=== PATIENT | female | born 1935 | race Caucasian/White ===

== ENCOUNTER → 2016-07-08 07:52 | Outpatient (CLI) | payer MEDICARE, OTHER ==
[2016-07-09 07:23] LABS: IMMUNOGLOBULIN E 10 IU/mL (0-100)
== END | disposition home or self-care (01) ==
LOC: D.RT 07:52
PROVIDERS: Internal Medicine Pulmonary Disease
DX: J45.909 Unspecified asthma, uncomplicated (principal)

== ENCOUNTER → 2017-06-30 12:53 | Outpatient (CLI) | payer MEDICARE, OTHER | END | disposition home or self-care (01) | LOC: D.RT 12:53 | DX: J45.909 Unspecified asthma, uncomplicated (principal) ==

== ENCOUNTER 2017-12-19 10:24 | Inpatient (IN) | payer MEDICARE, OTHER ==
[~2017-12-19] VITALS: Ht 158.8 cm; Wt 92.1 kg
--- NOTE | ~2017-12-19 | MORECARE ---
CASE MANAGEMENT DISCHARGE SUMMARY PATIENT: ZOHRA HARDING UNIT: [id number] ADM DATE: 12/20/17 AGE: 82 : 37 SEX: F ROOM/BED: D.1212 AUTHOR: KAYY,DOC PHYSICIAN: REFERRING PHYSICIAN: MARI GUERRERO MD DATE OF SERVICE: 12/26/17 Discharge Plan Patient Name: ZOHRA HARDING Facility: [facility]:[place] : 1935 Planned Disposition: Inpatient Rehab Anticipated Discharge Date: Discharge Date: 12/25/2017 Expected LOS: Initial Reviewer: [email or web address] Initial Review Date: 12/19/2017 Generated: 12/26/17 6:49 pm Comments DCP- Discharge Planning Updated by [email or web address]: Catherine Kaba on 12/25/17 11:[address] Patient Name: ZOHRA HARDING Admission Status: ER Accout number: [id number] Admission Date: 12-20-2017 : 1935 Admission Diagnosis:DISPLACED COMMINUTED FRACTURE OF RIGHT PATELLA, INIT Attending: MARI GUERRERO Current LOS: 5 Anticipated DC Date: Planned Disposition: Inpatient Rehab Primary Insurance: MEDICARE A & B Discharge Planning Comments: CM met with patient at bedside. Patient plans on going to Inpatient Rehab @ [facility]. Patient states she lives in her own apartment in the basement of her daughters home. She is concerned because she has a steep ramp going in and out of her home. She is currently in an immobilizer. Heather with inpatient rehab here for evaluation this am. IMM explained and served at 12/25/17 @ 1240. CM will continue to follow and assist as needed with discharge planning / needs. Lead Sustainability Specialist: Catherine Kaba DCPIA - Discharge Planning Initial Assessment Updated by [id number]: Catherine Kaba on 12/25/17 12:53 pm * Is the patient Alert and Oriented? Yes * How many steps to enter\exit or inside your home? ramp * PCP Kiara Garcia * Pharmacy [facility] * Preadmission Environment Home Alone * ADLs Independent * Equipment Walker * Other Equipment CPAP * List name and contact numbers for known caregivers / representatives who currently or will assist patient after discharge: Clarisse Colby daughter [phone] Yesenia Oleary daughter [phone] * Verbal permission to speak to the caregivers and representatives has been obtained from the patient. N/A * Community resources currently utilized None * Please name any agencies selected above. patient was going to outpatient rehab @ [facility] prior to admit due to anemia * Additional services required to return to the preadmission environment? No * Can the patient safely return to the preadmission environment? Yes * Has this patient been hospitalized within the prior 30 days at any hospital? No Coverage Notice Reviewer: [id number] Zac Kaba Notice Issued Date-Time: 12/20/2017 15:05 Notice Type: Medicare Outpatient Observation Notice Notice Delivered To: Patient Relationship to Patient: Self Building Guard Deputy Sheriff Name: Delivery Method: - Maddison Days: Prior Verbal Notification: Recipient Understood Notice: Yes Recipient Signature: Yes Med Rec Note Co-signed by Attending: Coverage Notice Comment: Reviewer: [id number] Kaba Notice Issued Date-Time: 12/25/2017 12:40 Notice Type: IM Discharge Notice Notice Delivered To: Patient Relationship to Patient: Self Building Guard Deputy Sheriff Name: Delivery Method: HAND - Hand Delivered Maddison Days: Prior Verbal Notification: Recipient Understood Notice: Yes Recipient Signature: Yes Med Rec Note Co-signed by Attending: Coverage Notice Comment: Last DP export: 12/25/17 12:00 Patient Name: ZOHRA HARDING Page [id number] at 1749 All edits/amendments must be made on the electronic document DICTATION DATE: 12/26/171747 CHILLER TECHNICIAN: BARRY 12/26/171747 RPT#: [id number] DC DATE:12/25/17 STATUS: DIS IN [facility] [address] [place] [address] END OF REPORT
--- NOTE | ~2017-12-19 | OP ---
PATIENT NAME: ZOHRA MATA MEDICAL RECORD: [id number] :[birth year] LOCATION:D. D.1212 ADMISSION DATE:12/20/17 SURGEON: KEESHA PATTERSON DO DATE OF OPERATION: 12/22/2017 PROCEDURE PERFORMED: Right patella open reduction internal fixation. PREOPERATIVE DIAGNOSIS: Closed displaced right patellar fracture. POSTOPERATIVE DIAGNOSIS: Closed displaced right patellar fracture. INDICATIONS: Ms. Mata is an 82-year-old female who fell onto her right side, a couple of days ago, was seen in the ER, seen to have some rib fractures and also right patellar fracture was displaced greater than 2 mm on x-ray. She did have a knee effusion as well as she could not do a single straight leg raise due to this fact. I told her we could wait and see what or we could fix the patella. She wanted the patella fixed so she can walk. I told her we would do that and she can weightbear as tolerated in a knee immobilizer. She was aware of the risks including infection, bleeding, damage to nerves and vessels, further fracture of the patella and need for further surgery. She was okay with those risks and consented to the procedure. SURGEON: Keesha Patterson DO DESCRIPTION OF PROCEDURE: The patient was taken to the operative suite and given a spinal due to her COPD. Once the spinal was set up, the right lower extremity was prepped and draped in sterile fashion. The patient was given 2 grams Ancef preoperatively. Timeout was performed. Everyone was in agreement with correct site, side, and the patient. Incision then began right over the patella and careful dissection was made down to the patella itself and the retinaculum. Two K-wires were then shot out inferior to superior on the patella and confirmed on AP and lateral to be in good position and then two 4-0 compression screws were put in through the K-wires, one was 38 mm in length and the other was a 34, they had nice compression of the fracture at the fracture site and then #2 Ethibond was used in a cerclage suture around the patella and was tied at the inferior pole of the patella under the patellar retinaculum. This suture was then cut. The knee was then aspirated and 30 cc of blood was aspirated out of the knee. The site was then irrigated and the 2 poke holes where the screws were then were closed with #1 Vicryl in a gfaujc-tk-ptxlo fashion and on the patellar retinaculum and then the skin was closed with 2-0 Vicryl and ZipLine was placed on the knee. Adaptic, 4 x 4s, ABD, Webril and Kwadwo wrap were then placed on the knee. The patient was placed in a knee immobilizer, awakened and taken to recovery in stable condition. BLOOD LOSS: Minimal, 15 mL. COMPLICATIONS: None. TRANSINT:[id number] Voice Confirmation ID: [id number] DOCUMENT ID: [id number] OPERATIVE REPORT [id number] ZOHRA MATA,KEESHA Kennedy DO at 0920 CC: [id number] DICTATION DATE: 12/22/17 175 CLERICAL SUPPORT: 12/22/17 223 ADM IN [facility] [address] [place] [address]
--- NOTE | ~2017-12-19 | MORECARE ---
CASE MANAGEMENT DISCHARGE SUMMARY PATIENT: ZOHRA HARDING UNIT: [id number] ADM DATE: 12/20/17 AGE: 82 : 37 SEX: F ROOM/BED: D.1212 AUTHOR: HÉCTOR SULTANA PHYSICIAN: REFERRING PHYSICIAN: MARI GUERRERO MD DATE OF SERVICE: 12/25/17 Discharge Plan Patient Name: ZOHRA HARDING [facility] [facility] 1935 Planned Disposition: Inpatient Rehab Anticipated Discharge Date: Discharge Date: Expected LOS: Initial Reviewer: [id number] Initial Review Date: 12/19/2017 Generated: 12/25/17 1:52 pm Coverage Notice Reviewer: [id number] Zac Kaba Notice Issued Date-Time: 12/20/2017 15:05 Notice Type: Medicare Outpatient Observation Notice Notice Delivered To: Patient Relationship to Patient: Self Foxpro Developer Name: Delivery Method: - Maddison Days: Prior Verbal Notification: Recipient Understood Notice: Yes Recipient Signature: Yes Med Rec Note Co-signed by Attending: Coverage Notice Comment: Patient Name: ZOHRA HARDING Page 44132 at 1252 All edits/amendments must be made on the electronic document DICTATION DATE: 12/25/17 125 RELAY MOTORMAN: BARRY 12/25/17 1252 RPT#: [id number] DC DATE: STATUS: ADM IN [facility] [address] [place] [address] END OF REPORT
--- NOTE | ~2017-12-19 | MORECARE ---
CASE MANAGEMENT DISCHARGE SUMMARY PATIENT: ZOHRA HARDING UNIT: [id number] ADM DATE: 12/20/17 AGE: 82 : 37 SEX: F ROOM/BED: D.1212 AUTHOR: KAYY,DOC PHYSICIAN: REFERRING PHYSICIAN: MARI GUERRERO MD DATE OF SERVICE: 12/25/17 Discharge Plan Patient Name: ZOHRA HARDING Facility: [facility]:[place] : 1935 Planned Disposition: Inpatient Rehab Anticipated Discharge Date: Discharge Date: Expected LOS: Initial Reviewer: [id number] Initial Review Date: 12/19/2017 Generated: 12/25/17 2:00 pm Comments DCP- Discharge Planning Updated by [id number]: Catherine Kaba on 12/25/17 11:[address] Patient Name: ZOHRA HARDING Admission Status: ER Accout number: [id number] Admission Date: 12-20-2017 : 1935 Admission Diagnosis:DISPLACED COMMINUTED FRACTURE OF RIGHT PATELLA, INIT Attending: MARI GUERRERO Current LOS: 5 Anticipated DC Date: Planned Disposition: Inpatient Rehab Primary Insurance: MEDICARE A & B Discharge Planning Comments: CM met with patient at bedside. Patient plans on going to Inpatient Rehab @ [facility]. Patient states she lives in her own apartment in the basement of her daughters home. She is concerned because she has a steep ramp going in and out of her home. She is currently in an immobilizer. Heather with inpatient rehab here for evaluation this am. IMM explained and served at 12/25/17 @ 1240. CM will continue to follow and assist as needed with discharge planning / needs. Observer Helper: Catherine Kaba DCPIA - Discharge Planning Initial Assessment Updated by [id number]: Catherine Kaba on 12/25/17 12:53 pm * Is the patient Alert and Oriented? Yes * How many steps to enter\exit or inside your home? ramp * PCP Kiara Garcia * Pharmacy [facility] * Preadmission Environment Home Alone * ADLs Independent * Equipment Walker * Other Equipment CPAP * List name and contact numbers for known caregivers / representatives who currently or will assist patient after discharge: Clarisse Colby daughter [phone] Yesenia Oleary daughter [phone] * Verbal permission to speak to the caregivers and representatives has been obtained from the patient. N/A * Community resources currently utilized None * Please name any agencies selected above. patient was going to outpatient rehab @ [facility] prior to admit due to anemia * Additional services required to return to the preadmission environment? No * Can the patient safely return to the preadmission environment? Yes * Has this patient been hospitalized within the prior 30 days at any hospital? No Coverage Notice Reviewer: [id number] Zac Kaba Notice Issued Date-Time: 12/20/2017 15:05 Notice Type: Medicare Outpatient Observation Notice Notice Delivered To: Patient Relationship to Patient: Self Hurricane Tracker Name: Delivery Method: - Maddison Days: Prior Verbal Notification: Recipient Understood Notice: Yes Recipient Signature: Yes Med Rec Note Co-signed by Attending: Coverage Notice Comment: Reviewer: [id number] Kaba Notice Issued Date-Time: 12/25/2017 12:40 Notice Type: IM Discharge Notice Notice Delivered To: Patient Relationship to Patient: Self Hurricane Tracker Name: Delivery Method: HAND - Hand Delivered Maddison Days: Prior Verbal Notification: Recipient Understood Notice: Yes Recipient Signature: Yes Med Rec Note Co-signed by Attending: Coverage Notice Comment: Last DP export: 12/25/17 11:52 Patient Name: ZOHRA HARDING Page 82123 at 1300 All edits/amendments must be made on the electronic document DICTATION DATE: 12/25/17 1259 MEAT SOAKER: BARRY 12/25/17 1259 RPT#: [id number] DC DATE: STATUS: ADM IN [facility] [address] [place] [address] END OF REPORT
[2017-12-19] MEDS ORDERED: BAYER CHEWABLE81 MG PO (10:29)
[2017-12-19] MEDS ORDERED: ALBUTEROL SULF8.5 GM INH (10:30)
[2017-12-19] MEDS ORDERED: NORVASC5 MG PO (10:31)
[2017-12-19] MEDS ORDERED: C-10001000 MG PO (10:31)
[2017-12-19] MEDS ORDERED: ALENDRONATE SOD70 MG PO (10:31)
[2017-12-19] MEDS ORDERED: BROMFED-DM COU473 ML PO (10:32)
[2017-12-19] MEDS ORDERED: BREO ELLIPTA 11 EACH INH (10:32)
[2017-12-19] MEDS ORDERED: ZPAK PO (10:32)
[2017-12-19] MEDS ORDERED: CALCIUM 500 +1 EAC3 PO (10:33)
[2017-12-19] MEDS ORDERED: VITAMIN D5000 UNIT PO (10:33)
[2017-12-19] MEDS ORDERED: CELEXA20 MG PO (10:33)
[2017-12-19] MEDS ORDERED: COREG6.25 MG PO (10:33)
[2017-12-19] MEDS ORDERED: TRIGLIDE160 MG PO (10:34)
[2017-12-19] MEDS ORDERED: FERROUS SULFAT325 MG PO (10:34)
[2017-12-19] MEDS ORDERED: CARDURA2 MG PO (10:34)
[2017-12-19] MEDS ORDERED: FISH OIL 1,0001 CA1 PO (10:34)
[2017-12-19] MEDS ORDERED: ISOSORBIDE MONO60 M1 PO (10:35)
[2017-12-19] MEDS ORDERED: FLUTICASONE PRO16 GM NASAL (10:35)
[2017-12-19] MEDS ORDERED: LASIX20 MG PO (10:35)
[2017-12-19] MEDS ORDERED: AVAPRO300 MG PO (10:35)
[2017-12-19] MEDS ORDERED: GLUCOPHAGE1000 MG PO (10:36)
[2017-12-19] MEDS ORDERED: SYNTHROID88 MCG PO (10:36)
[2017-12-19] MEDS ORDERED: CLARITIN 10 MG10 MG PO (10:36)
[2017-12-19] MEDS ORDERED: MAG-OXIDE400 MG PO (10:36)
[2017-12-19] MEDS ORDERED: OXYBUTYNIN CHLOR5 MG PO (10:37)
[2017-12-19] MEDS ORDERED: OMEPRAZOLE20 M1 PO (10:37)
[2017-12-19] MEDS ORDERED: NAPROSYN500 MG PO (10:37)
[2017-12-19] MEDS ORDERED: KLOR-CON 1010 MEQ PO (10:38)
[2017-12-19] MEDS ORDERED: ZANAFLEX2 M1 PO (10:38)
[2017-12-19] MEDS ORDERED: CRESTOR40 MG PO (10:38)
[2017-12-19] MEDS ORDERED: PHENERGAN DM SYR5 ML PO (10:38)
[2017-12-19] MEDS ORDERED: ULTRAM50 MG PO (10:39)
[2017-12-19] MEDS ORDERED: VITAMIN E400 UNI2 PO (10:39)
[2017-12-19] MEDS ORDERED: VITAMIN B-122500 MCG PO (10:39)
[2017-12-19] MEDS ORDERED: TOPAMAX50 MG PO (10:39)
[2017-12-19 12:39] LABS: BASOPHILS 0.4 % (0-2); EOSINOPHILS 1.4 % (0-7); HEMATOCRIT 32.3 % (36.0-48.0); HEMOGLOBIN 10.2 g/dL (12-16); IMMATURE GRANULOCYTES 0.2 % (0-5); LYMPHOCYTES 21.2 % (15-50); MCH 30.3 pg (26.0-34.0); MCHC 31.6 g/dL (31.0-37.0); MCV 95.8 fL (80.0-100.0); MEAN PLATELET VOLUME 9.7 fL (7.4-10.4); MONOCYTES 8.3 % (2-11); NEUTROPHILS 68.5 % (40-80); PLATELET COUNT 191 10x3/uL (130-400); RBC 3.37 10x6/uL (4.00-5.40); RDW 15.2 % (11.5-14.5); WBC 5.5 10x3/uL (4.8-10.8)
[2017-12-19 12:45] LABS: INR 1.12 (0.85-1.17)
[2017-12-19 12:52] LABS: ALBUMIN 3.3 g/dL (3.4-5.0); ANION GAP 10.2 mmol/L (8-16); BILIRUBIN - TOTAL 0.33 mg/dL (0.2-1.3); CALCIUM 9.2 mg/dL (8.5-10.1); CARBON DIOXIDE 27.1 mmol/L (21.0-32.0); CREATININE - SERUM 0.8 mg/dL (0.6-1.3); POTASSIUM - SERUM 4.3 mmol/L (3.5-5.1); PROTEIN - SERUM 6.7 g/dL (6.4-8.2)
[2017-12-19 16:00] VITALS: BP 102/60
[2017-12-19 16:37] LABS: APPEARANCE CLEAR (CLEAR); BILIRUBIN NEGATIVE (NEGATIVE); COLOR YELLOW (YELLOW); GLUCOSE NEGATIVE (NEGATIVE); KETONE NEGATIVE (NEGATIVE); NITRITE NEGATIVE (NEGATIVE); PROTEIN NEGATIVE (NEGATIVE); SPECIFIC GRAVITY 1.015 (1.005-1.020); UROBILINOGEN NORMAL (NORMAL)
[2017-12-19 16:41] LABS: RED CELLS - URINE OCC /hpf (0-5); WHITE CELLS - URINE OCC /hpf (0-5)
[2017-12-19 22:42] VITALS: BP 109/64; BMI 36.6
[2017-12-20 00:25] VITALS: BP 113/46
[2017-12-20 04:31] VITALS: BP 118/49
[2017-12-20 07:26] VITALS: BP 106/41
[2017-12-20 09:00] VITALS: BMI 36.5
[2017-12-20 13:46] VITALS: Ht 158.8 cm; Wt 92.1 kg
[2017-12-20 14:33] LABS: % SATURATION 12 % (15-55); IRON 40 ug/dl (35-150); TOTAL IRON BIND CAPACITY 324 ug/dl (260-445); UNSAT IRON BIND CAPACITY 284 ug/dl (150-375)
[2017-12-20 15:14] VITALS: BP 115/61
[2017-12-20 21:28] VITALS: BP 135/63
[2017-12-21 05:12] VITALS: BP 124/46
[2017-12-21 05:25] LABS: BASOPHILS 0.6 % (0-2); EOSINOPHILS 2.8 % (0-7); HEMATOCRIT 34.5 % (36.0-48.0); IMMATURE GRANULOCYTES 0.4 % (0-5); LYMPHOCYTES 26.7 % (15-50); MCH 30.6 pg (26.0-34.0); MCHC 31.9 g/dL (31.0-37.0); MCV 96.1 fL (80.0-100.0); MEAN PLATELET VOLUME 9.4 fL (7.4-10.4); MONOCYTES 16.4 % (2-11); NEUTROPHILS 53.1 % (40-80); PLATELET COUNT 182 10x3/uL (130-400); RBC 3.59 10x6/uL (4.00-5.40); RDW 15.2 % (11.5-14.5); WBC 5.3 10x3/uL (4.8-10.8)
[2017-12-21 05:34] LABS: ANION GAP 13.5 mmol/L (8-16); CALCIUM 9.6 mg/dL (8.5-10.1); CARBON DIOXIDE 26.8 mmol/L (21.0-32.0); CREATININE - SERUM 0.9 mg/dL (0.6-1.3); POTASSIUM - SERUM 4.3 mmol/L (3.5-5.1)
[2017-12-21 07:45] VITALS: BP 127/47
[2017-12-21 08:19] LABS: FOLATE (FOLIC ACID) - SERUM 12.2 ng/mL (>3.0)
[2017-12-21 11:24] VITALS: BP 144/49
[2017-12-21 16:29] VITALS: BP 126/60
[2017-12-21 23:47] VITALS: BP 130/52
[2017-12-22 00:24] VITALS: BP 130/52
[2017-12-22 04:15] VITALS: BP 107/41
[2017-12-22 05:45] LABS: BASOPHILS 0.3 % (0-2); EOSINOPHILS 2.2 % (0-7); HEMATOCRIT 36.2 % (36.0-48.0); HEMOGLOBIN 11.6 g/dL (12-16); IMMATURE GRANULOCYTES 0.4 % (0-5); LYMPHOCYTES 16.5 % (15-50); MCH 30.6 pg (26.0-34.0); MCV 95.5 fL (80.0-100.0); MEAN PLATELET VOLUME 9.7 fL (7.4-10.4); MONOCYTES 11.6 % (2-11); RBC 3.79 10x6/uL (4.00-5.40)
[2017-12-22 06:09] LABS: PLATELET COUNT 221 10x3/uL (130-400); WBC 8.9 10x3/uL (4.8-10.8)
[2017-12-22 06:14] LABS: ANION GAP 13.9 mmol/L (8-16); CALCIUM 10.2 mg/dL (8.5-10.1); CREATININE - SERUM 1.1 mg/dL (0.6-1.3); POTASSIUM - SERUM 3.9 mmol/L (3.5-5.1)
[2017-12-22 07:37] VITALS: BP 124/47
[2017-12-22 10:36] VITALS: BP 114/52
[2017-12-22 18:41] VITALS: BP 141/79
[2017-12-22 20:08] VITALS: BP 121/43
[2017-12-23 00:07] VITALS: BP 131/55
[2017-12-23 05:29] VITALS: BP 120/54
[2017-12-23 06:46] LABS: BASOPHILS 0.1 % (0-2); EOSINOPHILS 1.3 % (0-7); HEMATOCRIT 31.5 % (36.0-48.0); HEMOGLOBIN 10.1 g/dL (12-16); IMMATURE GRANULOCYTES 0.4 % (0-5); LYMPHOCYTES 16.3 % (15-50); MCH 30.7 pg (26.0-34.0); MCHC 32.1 g/dL (31.0-37.0); MCV 95.7 fL (80.0-100.0); MEAN PLATELET VOLUME 9.6 fL (7.4-10.4); MONOCYTES 14.2 % (2-11); NEUTROPHILS 67.7 % (40-80); PLATELET COUNT 192 10x3/uL (130-400); RBC 3.29 10x6/uL (4.00-5.40); RDW 15.2 % (11.5-14.5); WBC 7.7 10x3/uL (4.8-10.8)
[2017-12-23 07:03] LABS: ANION GAP 12.5 mmol/L (8-16); CALCIUM 8.7 mg/dL (8.5-10.1); CARBON DIOXIDE 28.2 mmol/L (21.0-32.0); CREATININE - SERUM 0.9 mg/dL (0.6-1.3); POTASSIUM - SERUM 3.7 mmol/L (3.5-5.1)
[2017-12-23 07:18] VITALS: BP 125/52
[2017-12-23 11:14] VITALS: BP 142/56
[2017-12-23 20:09] VITALS: BP 124/52
[2017-12-24 00:03] VITALS: BP 91/40
[2017-12-24 04:45] VITALS: BP 101/40
[2017-12-24 05:09] LABS: BASOPHILS 0.3 % (0-2); HEMATOCRIT 29.5 % (36.0-48.0); HEMOGLOBIN 9.4 g/dL (12-16); IMMATURE GRANULOCYTES 0.4 % (0-5); LYMPHOCYTES 20.3 % (15-50); MCH 30.3 pg (26.0-34.0); MCHC 31.9 g/dL (31.0-37.0); MCV 95.2 fL (80.0-100.0); MEAN PLATELET VOLUME 10.1 fL (7.4-10.4); MONOCYTES 14.8 % (2-11); NEUTROPHILS 61.2 % (40-80); PLATELET COUNT 211 10x3/uL (130-400); RDW 14.9 % (11.5-14.5); WBC 6.9 10x3/uL (4.8-10.8)
[2017-12-24 05:38] LABS: ANION GAP 11.5 mmol/L (8-16); CALCIUM 8.7 mg/dL (8.5-10.1); CARBON DIOXIDE 27.5 mmol/L (21.0-32.0); CREATININE - SERUM 0.8 mg/dL (0.6-1.3)
[2017-12-24 07:05] VITALS: BP 121/54
[2017-12-24 11:11] VITALS: BP 122/54
[2017-12-24 15:31] VITALS: BP 118/45
[2017-12-24 20:00] VITALS: BP 127/54
[2017-12-25 00:16] VITALS: BP 118/46
[2017-12-25 04:30] VITALS: BP 112/47
[2017-12-25 05:27] LABS: BASOPHILS 0.3 % (0-2); EOSINOPHILS 3.5 % (0-7); HEMATOCRIT 28.7 % (36.0-48.0); HEMOGLOBIN 9.2 g/dL (12-16); IMMATURE GRANULOCYTES 0.3 % (0-5); MCH 30.5 pg (26.0-34.0); MCHC 32.1 g/dL (31.0-37.0); MEAN PLATELET VOLUME 9.7 fL (7.4-10.4); MONOCYTES 11.5 % (2-11); NEUTROPHILS 65.4 % (40-80); PLATELET COUNT 219 10x3/uL (130-400); RBC 3.02 10x6/uL (4.00-5.40); RDW 14.8 % (11.5-14.5); WBC 6.8 10x3/uL (4.8-10.8)
[2017-12-25 06:23] LABS: ANION GAP 11.3 mmol/L (8-16); CALCIUM 8.8 mg/dL (8.5-10.1); CARBON DIOXIDE 27.8 mmol/L (21.0-32.0); CREATININE - SERUM 0.8 mg/dL (0.6-1.3); POTASSIUM - SERUM 4.1 mmol/L (3.5-5.1)
[2017-12-25 07:45] VITALS: BP 149/57
[2017-12-25 11:12] VITALS: BP 137/49
[2017-12-25] MEDS ORDERED: LEVOFLOXACIN500 MG PO (12:53)
[2017-12-25] MEDS ORDERED: ALBUTEROL2.5 MG/3 M INH (12:53)
[2017-12-25] MEDS ORDERED: BROVANA15 MCG/2 M INH (12:53)
[2017-12-25] MEDS ORDERED: NORCO-10 PO (12:54)
[2017-12-25] MEDS ORDERED: IPRAT-ALBUT 0.5-3 ML INH (12:54)
[2017-12-25] MEDS ORDERED: HYDROCODON-ACE1 EAC7 PO (12:55)
[2017-12-25] MEDS ORDERED: PULMICORT0.5 MG/21 UPD (12:55)
[2017-12-25] MEDS ORDERED: BENZONATATE200 MG PO (12:55)
[2017-12-25] MEDS ORDERED: COLACE100 MG PO (12:55)
[2017-12-25] MEDS ORDERED: HUMULIN R100 U/ML SC (12:56)
[2017-12-25] MEDS ORDERED: MIRALAX17 GM PO (12:56)
[2017-12-25 17:59] VITALS: BP 144/78
== END 2017-12-25 19:20 | DRG 516 ==
LOC: D.ER 10:24 → D.EDHOLD 13:54 → D.M3 13:54 → OBSVTIME 13:55 → D.M3 18:20
PROVIDERS: Family Medicine; Internal Medicine Nephrology; Orthopaedic Surgery
PROC: 0QSD04Z Reposition Right Patella with Internal Fixation Device, Open Approach (ICD-10-PCS; principal; 2017-12-22 14:45)
DX: S82.041A Displaced comminuted fracture of right patella, initial encounter for closed fracture (principal); S22.32XA Fracture of one rib, left side, initial encounter for closed fracture; N17.9 Acute kidney failure, unspecified; J96.11 Chronic respiratory failure with hypoxia; W01.0XXA Fall on same level from slipping, tripping and stumbling without subsequent striking against object, initial encounter; I25.10 Atherosclerotic heart disease of native coronary artery without angina pectoris; J30.9 Allergic rhinitis, unspecified; G47.33 Obstructive sleep apnea (adult) (pediatric); D64.9 Anemia, unspecified; F41.9 Anxiety disorder, unspecified; F32.9 Major depressive disorder, single episode, unspecified; E03.9 Hypothyroidism, unspecified; K21.9 Gastro-esophageal reflux disease without esophagitis; J44.9 Chronic obstructive pulmonary disease, unspecified; E11.9 Type 2 diabetes mellitus without complications; E78.5 Hyperlipidemia, unspecified; I10 Essential (primary) hypertension; Z95.1 Presence of aortocoronary bypass graft

== ENCOUNTER 2017-12-25 19:16 | Inpatient (IN) | payer MEDICARE, OTHER ==
[~2017-12-25] VITALS: Ht 158.8 cm; Wt 92.1 kg
--- NOTE | ~2017-12-25 | RHP ---
PATIENT: ZOHRA HARDING MEDICAL RECORD: [id number] ACCOUNT: [id number] LOCATION:[facility] : [birth year] ADMISSION DATE: 12/25/17 REHABILITATION HISTORY AND PHYSICAL EXAMINATION POST ADMISSION PHYSICIAN EXAMINATION DATE OF ADMISSION TO THE REHAB: 12/25/2017 ADMITTING DIAGNOSES: Acute comminuted fracture of the right patella, wckgtimk-ta-nyzar suprapatellar effusion, displaced acute fracture of the left posterior lateral 8th rib. HISTORY OF PRESENT ILLNESS: The patient is an 82-year-old female who is admitted secondary to a comminuted fracture of the right patella, zxngyhal-om-yolzo suprapatellar effusion, and also a displaced acute fracture of the posterior lateral left rib. After a fall at home on 12/19/2017, she was admitted to the Emergency Room. After arriving, since she had fallen home after tripping and resulted in immediate pain and tenderness, guarded range of motion to her knee. X-ray showed an acute comminuted fracture of the patella and also other x-ray showed a left posterior lateral 8th rib fracture with no evidence of a pneumothorax. The patient has got a history of obstructive sleep apnea, O2 dependence, coronary artery bypass grafting, aortic valve replacement, hypertension, hyperlipidemia, thyroid problems, chronic AFib. She was admitted with ortho and pulmonary consultation. After pulmonary clearance, she went to the OR for ORIF of her right patella. Previously, she was living alone, independent with her ADLs. She still drives. She is currently mod to max assist for ADLs and mobility. She has a right knee immobilizer and weightbearing as tolerated while up with PT. She has continuous O2 at 2 liters, uses CPAP at night. She is on continuous cardiac monitoring due to her history of AFib, coronary artery disease with stent placement, and aortic valve replacement. BARRIERS TO DISCHARGE: Need for O2 titration, cardiac monitoring, pain control, weightbearing as tolerated with the immobilizer, and PT assist and also the fact that she lives alone. COMORBIDITIES: Include a right patellar ORIF, chronic respiratory failure, hypoxia, coronary artery disease, history of aortic valve replacement, normocytic anemia, anemia, hyperlipidemia, hypertension, hypothyroidism, elevated blood sugars, O2 dependence, fatigue, weakness, anxiety, depression, and sleep apnea. PAST MEDICAL HISTORY: Significant for diabetes, thyroid problems, hypertension, coronary artery disease, COPD, skin cancer, acid reflux, arthritis, chronic back pain, osteoporosis, depression, anxiety, and cataracts. PAST SURGICAL HISTORY: Includes knee surgery, cataract surgery, aortic valve replacement, stents and angioplasty, and joint replacement. ALLERGIES: SULFA AND COUMADIN. CURRENT MEDICATIONS: She is on vitamin C daily, Tylenol p.r.n., TriCor 145 mg daily, she is on vitamin D 5000 units daily, potassium chloride oral powder 10 mEq daily, Flonase nasal spray, Ditropan 15 mg daily, Protonix 40 mg daily, metformin 1000 mg b.i.d. with meals, Purnima 60 mg daily, Synthroid 88 mcg HISTORY AND PHYSICAL [id number] ZOHRA HARDING L daily, she is on Levaquin right now 500 mg daily, Imdur 90 mg daily, Avapro 300 mg daily, furosemide 20 mg daily, Breo 1 puff daily, Cardura 2 mg daily, vitamin B12 daily, Celexa 20 mg daily, carvedilol 6.25 mg b.i.d. with meals, aspirin chewable 81 mg daily, ascorbic acid 1000 mg daily, Brovana 15 mcg b.i.d., DuoNeb updrafts, budesonide 0.5 mg b.i.d., Ultram 100 mg b.i.d., Topamax 50 mg b.i.d., tizanidine 2 mg b.i.d., Crestor 40 mg q.h.s., MiraLax 17 grams in 8 ounces of water daily, Neal 10/325 one tab q.4 hours p.r.n., naproxen 500 b.i.d., Mag-Ox 800 mg b.i.d., she is on an intermediate resistant sliding scale of insulin, Neal 5/325 one tab q.4 hours p.r.n., ferrous sulfate 325 mg b.i.d., Colace 100 mg b.i.d., cough syrup as needed, Tessalon Perles 200 mg t.i.d. p.r.n., Norvasc 5 mg b.i.d. HABITS: No current alcohol or tobacco use. FAMILY HISTORY: Noncontributory. SOCIAL HISTORY: The patient hopes to return back home and get back to her prior level of functioning. REVIEW OF SYSTEMS: GENERAL: Does complain of weakness and fatigue. HEENT: She does complain of cold, cough, and congestion. CARDIOVASCULAR: Denies any chest pain. LUNGS: Does complain of shortness of breath especially with activity. PHYSICAL EXAMINATION: VITAL SIGNS: Her weight is noted to be 203 pounds and height 5 feet 2 inches. Her vital signs are stable. She is afebrile. GENERAL: An obese female, in no acute distress, alert upon exam. HEENT: Normocephalic and atraumatic. Mucosa moist. NECK: Supple. No lymphadenopathy. LUNGS: Clear in upper nielsen. HEART: Irregular rate and rhythm. ABDOMEN: Benign. EXTREMITIES: No clubbing, cyanosis, or edema. NEUROLOGIC: She is intact, but she does have noted weakness. It should be noted on her extremities also, she has normal postop swelling for having an ORIF of her patella. LABORATORY DATA: Her white count is 5.9, H&H of 9.2 and 29.2, and platelet count is 244. Her sodium is 135, potassium 4.2, BUN and creatinine of 21 and 0.9, and blood sugar is 113. ASSESSMENT: This is an 82-year-old female patient admitted to rehab with a working diagnosis of multiple fractures involving her knee and also her ribs with debility associated with this. The patient has potential to make improvement. We instituted the following multidisciplinary therapies including, but not limited to physical, occupational, respiratory, speech, nutritional services, prosthetics and orthotics. Given her complex medical condition and risk for more complications, rehabilitation services cannot be provided at a low level of care such as custodial facility. PLAN: 1. Admit to [facility] rehab for inpatient therapy to include the following disciplines: HISTORY AND PHYSICAL [id number] ZOHRA HARDING A. Physical therapy to improve gait, all transfer skills and bed mobility to a modified independent level. B. Occupational therapy to improve activities of daily living to a modified independent level. C. Case management to assist with discharge planning and placement options. D. Nutrition to assist with nutritional needs. E. Rehabilitation nursing to assist in monitoring the patient's underlying medical conditions and to assist with any type of bowel or bladder management. 2. The patient's current medication and medical care will be continued. 4. Placed on standard fall precautions. 5. The patient's estimated length of stay is approximately 7-10 days. 6. We will discuss this patient during care team staff meeting this week. I am going to go ahead and continue on the weightbearing as tolerated status with her leg and we will follow up with care team and case management tomorrow. TRANSINT:[id number] Voice Confirmation ID: [id number] DOCUMENT ID: [id number] ELINA notes whether there has been none or any medical/functional change since admission: - No change since pre-admission screen. ELINA attests patient continues to be appropriate for IRF: - Continues to be appropriate for IRF. RODRIGO WILKES MD at 1854 CC: [id number] DICTATION DATE: 12/26/17 0845 ALLERGY NURSE: 12/26/17 0934 ADM IN [place] [id number] [place] [address]
[~2017-12-25 19:16] MED LIST: ALBUTEROL SULF8.5 GM INH; ALBUTEROL2.5 MG/3 M INH; ALENDRONATE SOD70 MG PO; AVAPRO300 MG PO; BAYER CHEWABLE81 MG PO; BENZONATATE200 MG PO; BREO ELLIPTA 11 EACH INH; BROMFED-DM COU473 ML PO; BROVANA15 MCG/2 M INH; C-10001000 MG PO; CALCIUM 500 +1 EAC3 PO; CARDURA2 MG PO; CELEXA20 MG PO; CLARITIN 10 MG10 MG PO; COLACE100 MG PO; COREG6.25 MG PO; CRESTOR40 MG PO; FERROUS SULFAT325 MG PO; FISH OIL 1,0001 CA1 PO; FLUTICASONE PRO16 GM NASAL; GLUCOPHAGE1000 MG PO; HUMULIN R100 U/ML SC; HYDROCODON-ACE1 EAC7 PO; IPRAT-ALBUT 0.5-3 ML INH; ISOSORBIDE MONO60 M1 PO; KLOR-CON 1010 MEQ PO; LASIX20 MG PO; LEVOFLOXACIN500 MG PO; MAG-OXIDE400 MG PO; MIRALAX17 GM PO; NAPROSYN500 MG PO; NORCO-10 PO; NORVASC5 MG PO; OMEPRAZOLE20 M1 PO; OXYBUTYNIN CHLOR5 MG PO; PHENERGAN DM SYR5 ML PO; PULMICORT0.5 MG/21 UPD; SYNTHROID88 MCG PO; TOPAMAX50 MG PO; TRIGLIDE160 MG PO; ULTRAM50 MG PO; VITAMIN B-122500 MCG PO; VITAMIN D5000 UNIT PO; VITAMIN E400 UNI2 PO; ZANAFLEX2 M1 PO; ZPAK PO
[2017-12-25 21:57] VITALS: BP 93/40
[2017-12-25 23:12] VITALS: BP 93/40
[2017-12-26 06:59] LABS: ANION GAP 10.9 mmol/L (8-16); CALCIUM 8.9 mg/dL (8.5-10.1); CARBON DIOXIDE 29.3 mmol/L (21.0-32.0); CREATININE - SERUM 0.9 mg/dL (0.6-1.3); POTASSIUM - SERUM 4.2 mmol/L (3.5-5.1)
[2017-12-26 07:00] LABS: BASOPHILS 0.5 % (0-2); EOSINOPHILS 2.9 % (0-7); HEMATOCRIT 29.2 % (36.0-48.0); HEMOGLOBIN 9.2 g/dL (12-16); IMMATURE GRANULOCYTES 0.2 % (0-5); LYMPHOCYTES 18.4 % (15-50); MCH 30.1 pg (26.0-34.0); MCHC 31.5 g/dL (31.0-37.0); MCV 95.4 fL (80.0-100.0); MEAN PLATELET VOLUME 9.6 fL (7.4-10.4); MONOCYTES 13.3 % (2-11); NEUTROPHILS 64.7 % (40-80); PLATELET COUNT 244 10x3/uL (130-400); RBC 3.06 10x6/uL (4.00-5.40); RDW 14.6 % (11.5-14.5); WBC 5.9 10x3/uL (4.8-10.8)
[2017-12-26 08:14] VITALS: BP 122/43
[2017-12-26 13:10] VITALS: BMI 36.5
[2017-12-26 16:59] VITALS: BP 134/64
[2017-12-26 19:00] VITALS: BP 123/51
[2017-12-27 06:11] LABS: BASOPHILS 0.3 % (0-2); EOSINOPHILS 1.4 % (0-7); HEMATOCRIT 29.6 % (36.0-48.0); HEMOGLOBIN 9.6 g/dL (12-16); IMMATURE GRANULOCYTES 0.2 % (0-5); LYMPHOCYTES 4.9 % (15-50); MCH 30.5 pg (26.0-34.0); MCHC 32.4 g/dL (31.0-37.0); MEAN PLATELET VOLUME 9.4 fL (7.4-10.4); MONOCYTES 10.7 % (2-11); NEUTROPHILS 82.5 % (40-80); PLATELET COUNT 247 10x3/uL (130-400); RBC 3.15 10x6/uL (4.00-5.40); RDW 14.5 % (11.5-14.5); WBC 6.5 10x3/uL (4.8-10.8)
[2017-12-27 06:35] LABS: ANION GAP 12.3 mmol/L (8-16); CALCIUM 9.3 mg/dL (8.5-10.1); CARBON DIOXIDE 27.6 mmol/L (21.0-32.0); CREATININE - SERUM 0.8 mg/dL (0.6-1.3); POTASSIUM - SERUM 3.9 mmol/L (3.5-5.1)
[2017-12-27 08:15] VITALS: BP 122/49
[2017-12-27 16:09] VITALS: BP 126/62
[2017-12-27 19:00] VITALS: BP 114/45
[2017-12-28 08:06] VITALS: BP 141/49
[2017-12-28 19:09] VITALS: BP 127/51
[2017-12-29 07:26] LABS: BASOPHILS 0.5 % (0-2); EOSINOPHILS 3.5 % (0-7); HEMATOCRIT 30.7 % (36.0-48.0); HEMOGLOBIN 9.8 g/dL (12-16); IMMATURE GRANULOCYTES 0.6 % (0-5); LYMPHOCYTES 17.4 % (15-50); MCH 30.2 pg (26.0-34.0); MCHC 31.9 g/dL (31.0-37.0); MCV 94.5 fL (80.0-100.0); MEAN PLATELET VOLUME 9.4 fL (7.4-10.4); MONOCYTES 13.3 % (2-11); NEUTROPHILS 64.7 % (40-80); PLATELET COUNT 285 10x3/uL (130-400); RBC 3.25 10x6/uL (4.00-5.40); RDW 14.5 % (11.5-14.5); WBC 6.3 10x3/uL (4.8-10.8)
[2017-12-29 07:37] LABS: CALC OSMOLALITY 277 mosm/kg (275-300); CALCIUM 8.8 mg/dL (8.5-10.1); CARBON DIOXIDE 28.2 mmol/L (21.0-32.0); CHLORIDE - SERUM 101 mmol/L (98-107); CREATININE - SERUM 0.7 mg/dL (0.6-1.3); GLUCOSE 120 mg/dL (74-106); POTASSIUM - SERUM 4.2 mmol/L (3.5-5.1); SODIUM 138 mmol/L (136-145); UREA NITROGEN 14 mg/dL (7-18); eGFR NON AFRICAN AMERICAN 85 mL/min (90-120)
[2017-12-29 08:19] VITALS: BP 139/55
[2017-12-29 19:00] VITALS: BP 127/51
[2017-12-30 08:22] VITALS: BP 143/51
[2017-12-30 19:45] VITALS: BP 138/63
[2017-12-31 09:51] VITALS: BP 143/47
[2017-12-31 19:44] VITALS: BP 150/67
[2018-01-01 06:19] LABS: EOSINOPHILS 3.7 % (0-7); HEMATOCRIT 31.8 % (36.0-48.0); HEMOGLOBIN 10.2 g/dL (12-16); IMMATURE GRANULOCYTES 5.2 % (0-5); LYMPHOCYTES 18.8 % (15-50); MCH 29.8 pg (26.0-34.0); MCHC 32.1 g/dL (31.0-37.0); MONOCYTES 14.5 % (2-11); NEUTROPHILS 56.8 % (40-80); PLATELET COUNT 318 10x3/uL (130-400); RBC 3.42 10x6/uL (4.00-5.40); RDW 14.3 % (11.5-14.5); WBC 7.1 10x3/uL (4.8-10.8)
[2018-01-01 06:38] LABS: ANION GAP 11.1 mmol/L (8-16); CALCIUM 9.4 mg/dL (8.5-10.1); CARBON DIOXIDE 28.9 mmol/L (21.0-32.0); CREATININE - SERUM 0.8 mg/dL (0.6-1.3)
[2018-01-01 07:50] VITALS: BP 116/53
[2018-01-01 18:29] VITALS: Ht 158.8 cm; Wt 92.1 kg
[2018-01-02 00:47] VITALS: BP 148/47
[2018-01-02 06:43] LABS: % SATURATION 18 % (15-55); IRON 59 ug/dl (35-150); TOTAL IRON BIND CAPACITY 311 ug/dl (260-445); UNSAT IRON BIND CAPACITY 252 ug/dl (150-375)
[2018-01-02 07:00] LABS: T4 THYROXIN - FREE 1.42 ng/dL (0.76-1.46); THYROID STIMULATING HORMONE 2.88 uIU/mL (0.36-3.74)
[2018-01-02 07:50] VITALS: BP 119/47
[2018-01-02 19:25] VITALS: BP 133/42
[2018-01-03 06:40] LABS: BASOPHILS 0.4 % (0-2); EOSINOPHILS 2.5 % (0-7); HEMATOCRIT 34.4 % (36.0-48.0); HEMOGLOBIN 11.1 g/dL (12-16); IMMATURE GRANULOCYTES 4.5 % (0-5); LYMPHOCYTES 20.2 % (15-50); MCH 30.2 pg (26.0-34.0); MCHC 32.3 g/dL (31.0-37.0); MCV 93.7 fL (80.0-100.0); MONOCYTES 13.4 % (2-11); PLATELET COUNT 309 10x3/uL (130-400); RBC 3.67 10x6/uL (4.00-5.40); RDW 14.9 % (11.5-14.5); WBC 6.9 10x3/uL (4.8-10.8)
[2018-01-03 07:02] LABS: CALC OSMOLALITY 271 mosm/kg (275-300); CALCIUM 9.1 mg/dL (8.5-10.1); CARBON DIOXIDE 23.8 mmol/L (21.0-32.0); CHLORIDE - SERUM 102 mmol/L (98-107); CREATININE - SERUM 0.5 mg/dL (0.6-1.3); GLUCOSE 125 mg/dL (74-106); POTASSIUM - SERUM 3.7 mmol/L (3.5-5.1); SODIUM 136 mmol/L (136-145); UREA NITROGEN 10 mg/dL (7-18); eGFR NON AFRICAN AMERICAN > 90 mL/min (90-120)
[2018-01-03 08:22] LABS: FOLATE (FOLIC ACID) - SERUM 10.3 ng/mL (>3.0)
[2018-01-03 08:38] VITALS: BP 166/61
[2018-01-03 19:00] VITALS: BP 114/47
[2018-01-04 19:46] VITALS: BP 123/51
[2018-01-05 07:02] LABS: BASOPHILS 0.1 % (0-2); EOSINOPHILS 1.7 % (0-7); HEMATOCRIT 32.2 % (36.0-48.0); HEMOGLOBIN 10.4 g/dL (12-16); IMMATURE GRANULOCYTES 0.8 % (0-5); LYMPHOCYTES 9.7 % (15-50); MCH 29.8 pg (26.0-34.0); MCHC 32.3 g/dL (31.0-37.0); MCV 92.3 fL (80.0-100.0); MEAN PLATELET VOLUME 8.7 fL (7.4-10.4); MONOCYTES 6.4 % (2-11); NEUTROPHILS 81.3 % (40-80); PLATELET COUNT 248 10x3/uL (130-400); RBC 3.49 10x6/uL (4.00-5.40); RDW 14.5 % (11.5-14.5); WBC 13.6 10x3/uL (4.8-10.8)
[2018-01-05 07:19] LABS: CALCIUM 9.8 mg/dL (8.5-10.1); CARBON DIOXIDE 26.4 mmol/L (21.0-32.0); CREATININE - SERUM 0.9 mg/dL (0.6-1.3); POTASSIUM - SERUM 4.4 mmol/L (3.5-5.1)
[2018-01-05 07:51] VITALS: BP 136/48
[2018-01-05 20:00] VITALS: BP 141/51
[2018-01-06 09:16] VITALS: BP 117/41
[2018-01-06 16:25] VITALS: BP 128/62
[2018-01-06 20:00] VITALS: BP 115/43
[2018-01-07 09:12] VITALS: BP 128/58
[2018-01-07 16:39] VITALS: BP 126/68
[2018-01-07 20:00] VITALS: BP 113/63
[2018-01-08 07:07] LABS: BASOPHILS 0.6 % (0-2); EOSINOPHILS 3.6 % (0-7); HEMOGLOBIN 9.7 g/dL (12-16); IMMATURE GRANULOCYTES 0.9 % (0-5); LYMPHOCYTES 29.4 % (15-50); MCH 29.5 pg (26.0-34.0); MCHC 32.3 g/dL (31.0-37.0); MCV 91.2 fL (80.0-100.0); MEAN PLATELET VOLUME 9.3 fL (7.4-10.4); MONOCYTES 10.7 % (2-11); NEUTROPHILS 54.8 % (40-80); RBC 3.29 10x6/uL (4.00-5.40); RDW 14.3 % (11.5-14.5); WBC 4.7 10x3/uL (4.8-10.8)
[2018-01-08 07:08] LABS: PLATELET COUNT 185 10x3/uL (130-400)
[2018-01-08 07:34] LABS: CALC OSMOLALITY 255 mosm/kg (275-300); CALCIUM 8.6 mg/dL (8.5-10.1); CARBON DIOXIDE 27.6 mmol/L (21.0-32.0); CHLORIDE - SERUM 93 mmol/L (98-107); CREATININE - SERUM 0.5 mg/dL (0.6-1.3); GLUCOSE 91 mg/dL (74-106); POTASSIUM - SERUM 4.1 mmol/L (3.5-5.1); SODIUM 127 mmol/L (136-145); UREA NITROGEN 16 mg/dL (7-18); eGFR NON AFRICAN AMERICAN > 90 mL/min (90-120)
[2018-01-08 08:00] VITALS: BP 123/60
[2018-01-08 16:55] VITALS: BP 120/58
[2018-01-08 20:05] VITALS: BP 139/55
[2018-01-09 08:00] VITALS: BP 152/55
== END 2018-01-09 10:49 | DRG 560 ==
LOC: D.REHAB 19:16
PROVIDERS: Emergency Medicine; Internal Medicine Gastroenterology
PROC: 0DB78ZX Excision of Stomach, Pylorus, Via Natural or Artificial Opening Endoscopic, Diagnostic (ICD-10-PCS; 2018-01-02)
PROC: 0DB58ZX Excision of Esophagus, Via Natural or Artificial Opening Endoscopic, Diagnostic (ICD-10-PCS; principal; 2018-01-02 16:00)
DX: S82.041D Displaced comminuted fracture of right patella, subsequent encounter for closed fracture with routine healing (principal); J96.10 Chronic respiratory failure, unspecified whether with hypoxia or hypercapnia; N17.9 Acute kidney failure, unspecified; S22.32XD Fracture of one rib, left side, subsequent encounter for fracture with routine healing; W19.XXXD Unspecified fall, subsequent encounter; I25.10 Atherosclerotic heart disease of native coronary artery without angina pectoris; D64.9 Anemia, unspecified; Z95.2 Presence of prosthetic heart valve; E78.5 Hyperlipidemia, unspecified; I10 Essential (primary) hypertension; E03.9 Hypothyroidism, unspecified; Z99.81 Dependence on supplemental oxygen; F41.8 Other specified anxiety disorders; G47.30 Sleep apnea, unspecified; R53.1 Weakness; Z95.1 Presence of aortocoronary bypass graft; R53.81 Other malaise; E11.9 Type 2 diabetes mellitus without complications; J44.9 Chronic obstructive pulmonary disease, unspecified; K21.9 Gastro-esophageal reflux disease without esophagitis; K44.9 Diaphragmatic hernia without obstruction or gangrene; K29.70 Gastritis, unspecified, without bleeding

== ENCOUNTER → 2018-09-20 09:26 | Outpatient (CLI) | payer MEDICARE, OTHER ==
[2018-01-01 18:29] VITALS: BMI 36.5
== END | disposition home or self-care (01) ==
LOC: D.RT 09:26
PROVIDERS: ATTEND Internal Medicine Pulmonary Disease
DX: J45.909 Unspecified asthma, uncomplicated (principal)